=== PATIENT | female | born 1990 | race Two or more races ===

== ENCOUNTER → 2024-02-09 | Emergency (ER) | payer OTHER ==
[~2024-02-09] VITALS: Ht 157.5 cm; Wt 79.4 kg
[2024-02-09 10:57] LABS: HEMATOCRIT 37.3 % (36.0-45.00); HEMOGLOBIN 13.1 g/dL (12.0-15.00); MEAN CORPUSCULAR HEMOGLOBIN 32.2 pg (27.00-32.0); PLATELET COUNT 211 K/uL (150-450); RED BLOOD COUNT 4.06 M/uL (4.00-6.00); RED CELL DISTRIBUTION WIDTH 13.2 % (11.5-14.5)
[2024-02-09 13:54] LABS: ANION GAP 9 (10.0-20.0); BLOOD UREA NITROGEN 11 mg/dL (7-18); BUN CREA RATIO 13 (7.0-25.0); CALCIUM 9.5 mg/dL (8.5-10.1); CARBON DIOXIDE 28 mEq/L (21-32); CHLORIDE 107 mmol/L (98-107); CREATININE SERUM 0.86 mg/dL (0.55-1.02); GFR 76.96; GLUCOSE FASTING 88 mg/dL (65-100); OSMOLALITY SERUM 278 MOSM/KG (275-295); POTASSIUM 3.69 mEq/L (3.5-5.1); SODIUM 140 mmol/L (136-145)
[2024-02-09 14:34] LABS: HCG QUANTITATIVE < 1 mUI/mL (1-3)
== END | disposition home or self-care (01) ==
LOC: ER 09:24
PROVIDERS: Emergency Medicine
DX: R07.89 Other chest pain (principal); R05.9 Cough, unspecified
CPT/HCPCS: 36415; 71046; 71260; 93005; 99284; Q9965